=== PATIENT | male | born 2000 | race Caucasian/White ===

== ENCOUNTER 2018-11-02 15:09 | Emergency (ER) | payer BC ==
[~2018-11-02] VITALS: Ht 182.9 cm; Wt 72.6 kg
== END 2018-11-02 18:51 | disposition home or self-care (01) ==
LOC: ER 15:09
DX: S61.421A Laceration with foreign body of right hand, initial encounter (principal); W45.8XXA Other foreign body or object entering through skin, initial encounter; Y93.89 Activity, other specified; Y92.838 Other recreation area as the place of occurrence of the external cause; Y99.8 Other external cause status